=== PATIENT | female | born 1955 | race American Indian/Alaskan Native ===

== ENCOUNTER 2017-04-13 06:56 | Day surgery (SDC) | payer MEDICARE ==
[2017-04-13 08:18] LABS: Alanine Aminotransferase 31 units/L (7-56); Albumin 4.2 g/dL (3.9-5); BUN/Creatinine Ratio 15; Blood Urea Nitrogen 15 mg/dL (7-17); Hemolysis Index 19
[2017-04-13] MEDS ORDERED: ATROPINE IV NR (08:26)
[2017-04-13] MEDS ORDERED: ATROPINE 0.1% (CARDIAC) ONE (08:28)
[2017-04-13] MEDS ORDERED: NITROSTAT SL ONE (09:00)
[2017-04-13] MEDS ORDERED: LOPRESSOR IV NR (09:00)
[2017-04-13 10:49] VITALS: BP 138/81
--- NOTE | 2017-04-13 12:14 | Cat Scan Report ---
CT ANGIO HEART STRUCTURE/MORPHOLOGY/FUNCTION: INDICATION: Chest pain. COMPARISON: None similar. FINDINGS: A limited chest CT scan was carried out for evaluation of heart structure, morphology and function. This dictation is for the non-cardiac portion of the chest which was included. No definite hilar or mediastinal mass. Visualized lungs are well-expanded and clear. Few small bilateral pneumatoceles incidentally noted. Mild nonspecific distal esophageal wall prominence/thickening, not excluded for gastroesophageal reflux and/or hiatal hernia, amongst others. Left hepatic lobe tip noted extending into the left upper quadrant. Possible cholecystectomy clips. Mild thoracic spondylosis. IMPRESSION: Few incidental findings, as above. Thank you for the opportunity to participate in this patient's care.
--- NOTE | 2017-04-13 14:55 | Procedure Note ---
INDICATION: Persistent chest pain despite a normal stress test. REFERRING PHYSICIAN: Javier Birmingham M.D. DESCRIPTION OF PROCEDURE: The patient received 0.4 mg of nitroglycerin sublingual for coronary vasodilatation prior to scanning. Using a 64/MDCT, a low dose noncontrast calcium scoring CT was performed with prospective gating followed by contrast enhanced CTA at 0.6 mm thickness with retrospective gating and 100 mL Isovue-370 IV. The scan was performed from gosia through the base of the heart. Data was reconstructed using multiple cardiac phases. FINDINGS: The overall quality of the scan is good, limited by the following artifacts: 1. Motion artifact caused by cardiac motion secondary to poor heart rate control. Average heart rate during acquisition was 63 beats per minute. 2. The total calcium score is zero indicating the absence of calcified atherosclerotic plaque and a very low cardiovascular disease risk. 3. This is a right dominant circulation. 4. The left main originates from the left coronary cusp. 5. The left main has no evidence of obstructive disease. 6. The proximal LAD has no evidence of obstructive disease. 7. The first diagonal artery has no evidence of obstructive disease. 8. The mid LAD has no evidence of obstructive disease. 9. The distal LAD is not well visualized. 10. The proximal circumflex artery has no evidence of obstructive disease. 11. The mid circumflex artery has no evidence of obstructive disease. 12. The distal circumflex artery has no evidence of obstructive disease. 13. The ramus intermedius has no evidence of obstructive disease. 14. The right coronary artery originates from the right coronary cusp. 15. The proximal right coronary artery has no evidence of obstructive disease. 16. The mid right coronary artery has no evidence of obstructive disease. 17. The distal right coronary artery has no evidence of obstructive disease. 18. The PDA and the posterolateral ventricular branch have no evidence of obstructive disease. 19. Aorta. 20. Sinus of Valsalva measures 29.8 x 30 mm. 21. Ascending aorta measures 30.7 x 28.5 mm. 22. Descending aorta at the level of the diaphragm measures 21.5 x 22.5 mm. 23. The pulmonary artery appears to be grossly normal in size. 24. The pulmonary veins are normal entering the left atrium. 25. The atrial appendage has no evidence of filling defect. 26. The left ventricle is normal in size and systolic function. Left ventricular ejection fraction is calculated at 56%. The left ventricular end-diastolic volume is 73 mL and the left ventricular end-systolic volume is 32 mL. 27. The pericardium exhibits no evidence of pericardial effusion. 28. Radiology overread of extracardiac structures. Please refer to the separate radiology overread. IMPRESSION: Good quality scan, limited by the following motion artifact caused by cardiac motion secondary to poor heart rate control. Average heart rate during acquisition was 63 beats per minute. 1. Zero calcium score indicating the absence of calcified atherosclerotic plaque and a very low cardiovascular disease risk. 2. No evidence of obstructive coronary artery disease. 3. The visualized segments of the aorta and the pulmonary arteries were within normal limits. 4. Normal left ventricular size and systolic function with an ejection fraction measured at 56%. JOB# [id number] RYLAN/RODOLFO
== END 2017-04-13 09:50 | disposition home or self-care (01) ==
LOC: CATHLABREC 06:56 → EDSTATUS 07:45 → CATHLABREC 09:50
PROVIDERS: ATTEND Internal Medicine Cardiovascular Disease
DX: R07.9 Chest pain, unspecified (principal)
CPT/HCPCS: 36415; 75574; 80053; Q9967; J0461